=== PATIENT | male | born 1955 | race Caucasian/White ===

== ENCOUNTER 2024-04-08 09:03 | Outpatient (OUT) | payer MEDICARE, SELFPAY ==
[2024-04-09 04:07] LABS: PSA, Free 0.86 ng/mL; Prostate Specific Ag 4.8 ng/mL (0.0-4.0)
== END 2024-04-08 09:04 | disposition home or self-care (01) ==
LOC: LAB 09:10
PROVIDERS: PCP Internal Medicine; Visit Provider Urology
DX: R97.20 Elevated prostate specific antigen [PSA] (principal)
CPT/HCPCS: 36415; 84153; 84154